=== PATIENT | female | born 1950 | race Caucasian/White ===

== ENCOUNTER → 2022-10-16 16:34 | Outpatient (CLI) | payer MEDICARE, SELFPAY ==
[2022-10-16 17:17] LABS: Basophils # 0.1 K/mm3 (0-0.2); Basophils % 1.3 % (0.1-2.0); Eosinophils # 0.1 K/mm3 (0.0-0.4); Eosinophils % 1.3 % (0.1-12.0); Hematocrit 43.6 % (37.0-47.0); Hemoglobin 14.7 g/dL (12.2-16.2); Lymphocytes # 1.5 K/mm3 (0.7-4.5); Lymphocytes % 19.8 % (10-50); Mean Corpuscular HGB Conc 33.7 g/dL (31.8-35.4); Mean Corpuscular Hemoglobin 28.7 pg (27.0-31.2); Mean Corpuscular Volume 85.1 fl (81-99); Mean Platelet Volume 9.7 fl (7.4-10.4); Monocytes # 0.4 K/mm3 (0.1-1.0); Monocytes % 5.8 % (1.7-9.3); Neutrophils # 5.4 K/mm3 (1.8-7.8); Neutrophils % 71.8 % (37.0-80.0); Platelet Count 225 K/mm3 (142-424); Red Blood Count 5.12 M/mm3 (4.20-5.40); Red Cell Distribution Width 13.3 % (11.5-17.5); White Blood Count 7.6 K/mm3 (4.8-10.8)
[2022-10-16 17:28] LABS: Blood Urea Nitrogen 12 mg/dl (7-17); Calcium 9.1 mg/dl (8.4-10.2); Carbon Dioxide 26 mmol/L (22.0-30.0); Chloride 102 mmol/L (98-107); Estimated Glomerular Filt Rate 98 ml/min (>60); GFR (African American) 119 ML/MIN (>60); Glucose 96 mg/dl (74-100); Sodium 136 mmol/L (136-145); Uric Acid 6.6 mg/dl (2.5-6.2)
[2022-10-16 17:58] LABS: Thyroid Stimulating Hormone 0.67 uIU/mL (0.465-4.68)
[2022-10-16 18:00] LABS: Erythrocyte Sedimentation Rate 6 mm/hr (0-30)
== END ==
PROVIDERS: PCP Internal Medicine; Visit Provider Internal Medicine
DX: I34.1 Nonrheumatic mitral (valve) prolapse (principal); E03.9 Hypothyroidism, unspecified; E78.5 Hyperlipidemia, unspecified; R73.01 Impaired fasting glucose; M10.9 Gout, unspecified; M15.0 Primary generalized (osteo)arthritis; Z87.39 Personal history of other diseases of the musculoskeletal system and connective tissue
CPT/HCPCS: 80048; 84443; 84550; 85025; 85651

== ENCOUNTER → 2023-02-24 15:31 | Outpatient (CLI) | payer MEDICARE, SELFPAY ==
--- NOTE | 2023-02-24 15:38 | XR_ITS ---
FINAL REPORT CLINICAL HISTORY: SCIATICA COMPARISON: None FINDINGS: LUMBOSACRAL SPINE SERIES Five views of the lumbosacral spine were obtained. There is no fracture present. The vertebrae are normal in height. There is no malalignment. Disc spaces are preserved. There are no significant degenerative changes. IMPRESSION: No acute abnormality. Reviewed, Interpreted and Dictated by Cody Heath MD Transcribed by Cayla Andrade Authenticated and [facility]
== END ==
PROVIDERS: PCP Internal Medicine; Visit Provider Internal Medicine
DX: M54.41 Lumbago with sciatica, right side (principal)
CPT/HCPCS: 72110

== ENCOUNTER 2024-06-01 16:00 | Outpatient (CLI) | payer MEDICARE, SELFPAY ==
[2024-06-01 17:17] LABS: Free T4 (Free Thyroxine) 1.22 ng/dl (0.78-2.19)
== END 2024-06-01 23:59 | disposition home or self-care (01) ==
LOC: LAB.DROPOF 06-02 14:42
PROVIDERS: PCP Internal Medicine; Visit Provider Internal Medicine
DX: E03.9 Hypothyroidism, unspecified (principal); I10 Essential (primary) hypertension
CPT/HCPCS: 84439; 84443